=== PATIENT | male | born 1960 | race Caucasian/White ===

== ENCOUNTER 2019-12-09 13:07 | Emergency (ER) | payer BC ==
[2019-12-09 13:14] VITALS: RESP 18
[2019-12-09] MEDS ORDERED: ASPIRIN 81 MG PO STA (13:25)
--- NOTE | 2019-12-09 13:42 | ED ---
Chest Pain HPI - General Source: patient Mode of arrival: ambulatory Limitations: no limitations <Saúl Hooks - Last Filed: 12/09/19 16:32> <Mariah Restrepo - Last Filed: 12/13/19 23:24> - General Chief Complaint: Chest Pain Stated Complaint: Chest discomfort Time Seen by Provider: 12/09/19 13:25 - History of Present Illness Initial Comments: Patient is a 59-year-old male with no significant past medical history presenting to the emergency department with a chief complaint of chest pain. He states over the last 2 days he has developed localized, left-sided chest discomfort without any radiation. She reports the discomfort has increased since this morning. He reports some discomfort along the left side of his neck radiating to the left shoulder. Denies any lightheadedness or dizziness. Denies any nausea or vomiting or diaphoretic episodes. She does take a daily baby aspirin. Patient is not a smoker. No family history of cardiac disease or early cardiac related . (Saúl Hooks) - Related Data Home Medications Medication Instructions Recorded Confirmed Aspirin EC [Ecotrin Low Dose] 81 mg PO DAILY 12/09/19 12/09/19 Cholecalciferol [Vitamin D3 (25 1,000 unit PO DAILY 12/09/19 12/09/19 Mcg = 1000 Iu)] Glucosam/Robert-Msm1/C/Salvatore/Bosw 1 tab PO DAILY 12/09/19 12/09/19 [Glucosamine-Chondroitin Tablet] Multivitamins, Thera [Multivitamin 1 tab PO DAILY 12/09/19 12/09/19 (formulary)] Omeprazole 20 mg PO DAILY 12/09/19 12/09/19 Allergies Allergy/AdvReac Type Severity Reaction Status Date / Time No Known Allergies Allergy Verified 12/09/19 13:58 Review of Systems ROS Other: All systems not noted in ROS Statement are negative. <aSúl Hooks - Last Filed: 12/09/19 16:32> ROS Other: All systems not noted in ROS Statement are negative. <Mariah Restrepo - Last Filed: 12/13/19 23:24> ROS Statement: Those systems with pertinent positive or pertinent negative responses have been documented in the HPI. EKG Findings - EKG Comments: EKG Findings:: Sinus arrhythmia, no ST changes. Ventricular rate 84, MD interval 156, QRS duration 76, QTC 415. <Saúl Hooks - Last Filed: 12/09/19 16:32> Past Medical History Past Medical History: No Reported History History of Any Multi-Drug Resistant Organisms: None Reported Past Surgical History: Cholecystectomy, Orthopedic Surgery Past Psychological History: No Psychological Hx Reported Smoking Status: Never smoker Past Alcohol Use History: Occasional Past Drug Use History: None Reported <Saúl Hooks - Last Filed: 12/09/19 16:32> General Exam Limitations: no limitations General appearance: alert, in no apparent distress, obese Head exam: Present: atraumatic, normocephalic, normal inspection Eye exam: Present: normal appearance, PERRL, EOMI Pupils: Present: normal accommodation ENT exam: Present: normal exam Neck exam: Present: normal inspection, tenderness (Mild reproducible left-sided neck tenderness.), full ROM Respiratory exam: Present: normal lung sounds bilaterally Cardiovascular Exam: Present: regular rate, normal rhythm, normal heart sounds Extremities exam: Present: normal inspection, full ROM, normal capillary refill, other (+2 ulnar and radial pulses bilaterally.) Back exam: Present: normal inspection, full ROM Neurological exam: Present: alert, oriented X3, CN II-XII intact Psychiatric exam: Present: normal affect, normal mood Skin exam: Present: warm, dry, intact, normal color <Saúl Hooks - Last Filed: 12/09/19 16:32> Course Vital Signs 12/09/19 12/09/19 12/09/19 13:12 13:44 14:22 Temperature 97.5 F L Pulse Rate 93 85 84 Respiratory 18 18 18 Rate Blood Pressure 149/108 160/103 140/88 O2 Sat by Pulse 99 98 98 Oximetry 12/09/19 16:13 Temperature 98.0 F Pulse Rate 76 Respiratory 18 Rate Blood Pressure 140/91 O2 Sat by Pulse 97 Oximetry Chest Pain MDM - Differential Diagnosis ACS, Chest Wall Syndrome <Saúl Hooks - Last Filed: 12/09/19 16:32> <Mariah Restrepo - Last Filed: 12/13/19 23:24> - [facility] Patient is 59-year-old male presenting to the emergency department with a chief complaint of chest pain. Patient had localized, left-sided chest discomfort for the past 2 days with increasing severity since this morning. Atypical features. Also has some left-sided neck pain although it appears to be secondary to a recent dental work done that caused some facial pain to begin radiating along the neck. Patient initially given aspirin. Initial troponin is negative. EKG shows sinus arrhythmia. CBC CMP unremarkable. On reevaluation the pain/discomfort has resolved. Patient has a hard score of 3. He is very low risk for a cardiac related acute disease. Patient offered observation stay but he declined. Secondary troponin obtained. 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 Strict return parameters were thoroughly discussed with patient was understanding and agreeable. Case discussed with physician. (Saúl Hooks) I was available for consultation in the emergency department. The history and physical exam were done by the midlevel provider. I was consulted for this patients care. I reviewed the case with the midlevel provider and based on their presentation of the patient, I agree with the assessment, medical decision making and plan of care as documented. Hospital observation was recommended to the patient however he declined. We requested to draw a second troponin on the patient and he did agree to this. Second troponin remained negative. Chart was dictated using [employer] dictation software. Attempts were made to correct any dictation errors however some typographical errors may persist. (Mariah Restrepo) Disposition Is patient prescribed a controlled substance at d/c from ED?: No Time of Disposition: 15:43 <Saúl Hooks - Last Filed: 12/09/19 16:32> <Mariah Restrepo - Last Filed: 12/13/19 23:24> Clinical Impression: Atypical chest pain Disposition: HOME SELF-CARE Condition: Stable Instructions (If sedation given, give patient instructions): Chest Pain (ED) Additional Instructions: Please follow up with cardiology. Please return to emergency department if symptoms worsen. Referrals: Víctor Cheney DO [Primary Care Provider] - 1-2 days
--- NOTE | 2019-12-09 13:57 | XR ---
EXAMINATION TYPE: XR chest 2V DATE OF EXAM: 12/09/2019 COMPARISON: NONE HISTORY: Chest discomfort on and off for 2 days. TECHNIQUE: Frontal and lateral views of the chest are obtained. FINDINGS: There is no focal air space opacity, pleural effusion, or pneumothorax seen. The cardiac silhouette size is within normal limits. S-shaped scoliosis. Cholecystectomy clips. Overlying EKG briana ds. IMPRESSION: No acute cardiopulmonary process.
[2019-12-09 14:08] LABS: Basophils # (A) 0.1 k/uL (0-0.2); Basophils % (A) 1 %; Eosinophils # (A) 0.2 k/uL (0-0.7); Eosinophils % (A) 3 %; HCT 49.5 % (39.0-53.0); HGB 16.2 gm/dL (13.0-17.5); Lymphocytes # (A) 1.5 k/uL (1.0-4.8); Lymphocytes % (A) 22 %; MCH 27.2 pg (25.0-35.0); MCHC 32.7 g/dL (31.0-37.0); MCV 83.2 fL (80.0-100.0); Mean Platelet Volume 7.1; Monocytes # (A) 0.5 k/uL (0-1.0); Monocytes % (A) 7 %; Neutrophils # (A) 4.5 k/uL (1.3-7.7); Neutrophils % (A) 65 %; Platelet Count 282 k/uL (150-450); RBC 5.96 m/uL (4.30-5.90); WBC 6.9 k/uL (3.8-10.6)
[2019-12-09 14:23] LABS: Albumin 4.4 g/dL (3.5-5.0); Calcium 10.2 mg/dL (8.4-10.2); Magnesium 2.2 mg/dL (1.6-2.3); Total Bilirubin 0.8 mg/dL (0.2-1.3); Total Protein 7.1 g/dL (6.3-8.2)
[2019-12-09 14:28] LABS: Potassium 4.4 mmol/L (3.5-5.1)
[2019-12-09 16:16] VITALS: BP 140/91; PULSE 76; TEMP 98
== END 2019-12-09 16:16 | disposition home or self-care (01) ==
LOC: EC 13:07
DX: R07.89 Other chest pain (principal); I49.8 Other specified cardiac arrhythmias; M54.2 Cervicalgia; R51 Headache; Z79.82 Long term (current) use of aspirin; Z79.899 Other long term (current) drug therapy; Z53.20 Procedure and treatment not carried out because of patient's decision for unspecified reasons
CPT/HCPCS: 36415; 71046; 80053; 83735; 84484; 85025; 93005; 99285